=== PATIENT | female | born 1940 | race African-American/Black ===

== ENCOUNTER 2017-09-30 21:31 | Emergency (ER) | payer MEDICARE ==
[~2017-09-30] VITALS: Ht 154.9 cm; Wt 50.0 kg
[~2017-09-30 21:31] MED LIST: ASPI-867 PO; ATOR20TA65 PO; BUSP5TAB3 PO; CLOP75TA33 PO; DILT180C69 PO; FAMO20TA8 PO; FISH PO; METO100T16 PO; MIRT-91 PO; QUET50TA PO
[2017-09-30 22:48] LABS: CLARITY URINE CLEAR (CLEAR); COLOR URINE YELLOW (YELLOW); KETONES URINE NEGATIVE (NEGATIVE); LEUKOCYTE ESTERASE URINE NEGATIVE (NEGATIVE); NITRITE URINE NEGATIVE (NEGATIVE); OCCULT BLOOD URINE NEGATIVE (NEGATIVE); PROTEIN URINE 2+ (NEGATIVE); SPECIFIC GRAVITY URINE 1.024 (1.005-1.030); UROBILINOGEN URINE 0.2 E.U./dL (0.2-1.0)
[2017-09-30 23:06] LABS: BASOPHILS % 0.5 % (0.0-2.0); EOSINOPHILS % 0.7 % (0.0-5.0); HEMATOCRIT. 35.8 % (36.0-48.0); HEMOGLOBIN. 11.5 g/dL (12.0-16.0); MEAN CORPUSCULAR HEMOGLOBIN 27.1 pg (28.0-32.0); MEAN CORPUSCULAR VOLUME 84.6 fL (81.0-99.0); MEAN PLATELET VOLUME 8.9 fl (7.4-10.4); MONOCYTES % 9.4 % (2.0-8.0); NEUTROPHILS % 66.4 % (40.0-76.0); PLATELET 166 x1000/uL (130-400); RED BLOOD CELL COUNT 4.23 mill/uL (4.2-5.4); RED CELL DISTRIBUTION WIDTH 17.7 % (11.6-14.6)
[2017-09-30 23:07] LABS: CHLORIDE 109 mEq/L (98-107)
[2017-09-30 23:09] LABS: INR 1.3; PARTIAL THROMBOPLASTIN TIME 20.6 sec (23.4-31.0); PROTHROMBIN TIME 14.1 sec (9.4-11.6)
[2017-10-01 01:00] VITALS: BP 192/137
[2017-10-01] MEDS ORDERED: METOPROLOL TARTRATE 50MG TABLET PO ONE (01:15)
[2017-10-01] MEDS ORDERED: LOSARTAN POTASSIUM 25 MG TABLET PO ONE (01:15)
[2017-10-01] MEDS ORDERED: QUETIAPINE FUMARATE 50MG TABLET PO SCH (01:15)
== END 2017-10-01 01:00 | disposition home or self-care (01) ==
LOC: ER 21:31
DX: M54.2 Cervicalgia (principal); W10.9XXA Fall (on) (from) unspecified stairs and steps, initial encounter; Y93.89 Activity, other specified; Y92.89 Other specified places as the place of occurrence of the external cause; R07.89 Other chest pain; I48.91 Unspecified atrial fibrillation; I10 Essential (primary) hypertension; M48.02 Spinal stenosis, cervical region; R79.1 Abnormal coagulation profile; F03.90 Unspecified dementia, unspecified severity, without behavioral disturbance, psychotic disturbance, mood disturbance, and anxiety; R90.82 White matter disease, unspecified; I25.2 Old myocardial infarction; Z79.01 Long term (current) use of anticoagulants; Z79.82 Long term (current) use of aspirin; Z95.0 Presence of cardiac pacemaker
CPT/HCPCS: 36415; 70450; 71045; 72125; 72170; 80053; 81003; 83690; 85025; 85610; 85730; 86850; 86900; 99285

== ENCOUNTER 2017-10-17 23:02 | Observation (INO) | payer MEDICARE ==
[~2017-10-17] VITALS: Ht 154.9 cm; Wt 47.2 kg
[2017-10-17] MEDS ORDERED: ACETAMINOPHEN 325MG TABLET PO STA (23:22)
[2017-10-17] MEDS ORDERED: NITROGLYCERIN OINT 1GM/INCH UDPKT TD ONE (23:30)
[2017-10-17] MEDS ORDERED: ASPIRIN 81MG TABLET PO ONE (23:30)
[2017-10-17] MEDS ORDERED: LABETALOL HCL 20MG/4ML CARPUJECT IV ONE (23:30)
[2017-10-17] MEDS ORDERED: LABETALOL 5MG/ML SYR 20 MG/4 ML SYRINGE IV NR (23:32)
[2017-10-18] LABS: BASOPHILS % 0.3 % (0.0-2.0); EOSINOPHILS % 0.1 % (0.0-5.0); HEMATOCRIT. 42.5 % (36.0-48.0); HEMOGLOBIN. 14.1 g/dL (12.0-16.0); LYMPHOCYTES % 13.6 % (20.0-50.0); MEAN CORPUSCULAR HEMOGLOBIN 27.4 pg (28.0-32.0); MEAN CORPUSCULAR VOLUME 82.3 fL (81.0-99.0); MEAN PLATELET VOLUME 8.5 fl (7.4-10.4); MONOCYTES % 9.8 % (2.0-8.0); NEUTROPHILS % 76.2 % (40.0-76.0); PLATELET 252 x1000/uL (130-400); RED BLOOD CELL COUNT 5.16 mill/uL (4.2-5.4); RED CELL DISTRIBUTION WIDTH 16.8 % (11.6-14.6)
[2017-10-18 00:05] LABS: INR 1.3; PROTHROMBIN TIME 13.4 sec (9.4-11.6)
[2017-10-18 00:23] LABS: CHLORIDE 96 mEq/L (98-107)
[2017-10-18 00:31] LABS: ETHANOL BLOOD < 10 mg/dL
[2017-10-18] MEDS ORDERED: HYDRALAZINE 20MG/ML VIAL IV SCH (02:13)
[2017-10-18 03:45] LABS: CLARITY URINE CLEAR (CLEAR); COLOR URINE YELLOW (YELLOW); KETONES URINE NEGATIVE (NEGATIVE); LEUKOCYTE ESTERASE URINE NEGATIVE (NEGATIVE); NITRITE URINE NEGATIVE (NEGATIVE); OCCULT BLOOD URINE NEGATIVE (NEGATIVE); PROTEIN URINE 2+ (NEGATIVE); SPECIFIC GRAVITY URINE 1.017 (1.005-1.030); UROBILINOGEN URINE 0.2 E.U./dL (0.2-1.0)
[2017-10-18 03:58] LABS: *AMPHETAMINES SCREEN URINE NEGATIVE (NEGATIVE); *BARBITURATES SCREEN URINE NEGATIVE (NEGATIVE); CANNABINOID URINE SCREEN NEGATIVE (NEGATIVE)
[2017-10-18 03:59] LABS: *BENZODIAZEPINES SCREEN URINE NEGATIVE (NEGATIVE); *COCAINE SCREEN URINE NEGATIVE (NEGATIVE); METHADONE URINE SCREEN NEGATIVE (NEGATIVE); OPIATES URINE SCREEN NEGATIVE (NEGATIVE); PHENCYCLIDINE URINE SCREEN NEGATIVE (NEGATIVE)
[2017-10-18 09:00] VITALS: BP 115/82
[2017-10-18 09:30] VITALS: BP 115/82
[2017-10-18] MEDS ORDERED: WARF3TAB58 PO (09:57)
[2017-10-18] MEDS ORDERED: ASPI-1158 PO (09:57)
[2017-10-18] MEDS ORDERED: METO-385 PO (09:57)
[2017-10-18] MEDS ORDERED: MULT-1146 MT (09:57)
[2017-10-18] MEDS ORDERED: LOSA25TA12 PO (09:57)
[2017-10-18] MEDS ORDERED: WARF-67 PO (09:57)
[2017-10-18 12:00] VITALS: BP 134/96
[2017-10-18 16:34] VITALS: BP 124/89
[2017-10-18] MEDS ORDERED: IPRATROPIUM/ALBUTEROL 0.5-3(2.5)MG/3ML NEB HHN PRN (17:00)
[2017-10-18] MEDS ORDERED: ACETAMINOPHEN 650MG/20.3ML UDC PO PRN (17:00)
[2017-10-18] MEDS ORDERED: WARFARIN SODIUM 3MG TABLET PO NR (18:00)
[2017-10-18] MEDS: LOSARTAN POTASSIUM 25 MG TABLET PO SCH (18:18)
[2017-10-18] MEDS: FUROSEMIDE 20MG/2ML VIAL IVP SCH (18:20)
[2017-10-18 20:00] VITALS: BP 188/104
[2017-10-18] MEDS: CLONIDINE 0.1MG TABLET PO PRN (20:08)
[2017-10-18 20:37] LABS: HEMATOCRIT 37.7 % (36.0-48.0); HEMOGLOBIN 12.4 g/dL (12.0-16.0); MEAN CORPUSCULAR HEMOGLOBIN 26.8 pg (28.0-32.0); MEAN CORPUSCULAR VOLUME 81.3 fL (81.0-99.0); PLATELET 242 x1000/uL (130-400); RED BLOOD CELL COUNT 4.63 mill/uL (4.2-5.4); RED CELL DISTRIBUTION WIDTH 16.6 % (11.6-14.6)
[2017-10-18 20:39] LABS: CHLORIDE 98 mEq/L (98-107)
[2017-10-18] MEDS: ATORVASTATIN CALCIUM 20MG TABLET PO SCH (20:51)
[2017-10-19] MEDS ORDERED: LORAZEPAM 2MG/ML CPJ IV PRN (00:45)
[2017-10-19] MEDS ORDERED: DILTIAZEM HCL 5MG/ML 5ML VIAL IV SCH (00:49)
[2017-10-19 04:00] VITALS: BP 147/86
[2017-10-19 07:05] LABS: HEMATOCRIT 36.7 % (36.0-48.0); HEMOGLOBIN 12.1 g/dL (12.0-16.0); MEAN CORPUSCULAR HEMOGLOBIN 26.5 pg (28.0-32.0); MEAN CORPUSCULAR VOLUME 80.7 fL (81.0-99.0); PLATELET 227 x1000/uL (130-400); RED BLOOD CELL COUNT 4.55 mill/uL (4.2-5.4); RED CELL DISTRIBUTION WIDTH 16.7 % (11.6-14.6)
[2017-10-19 07:11] LABS: INR 1.4; PROTHROMBIN TIME 14.1 sec (9.4-11.6)
[2017-10-19 07:39] VITALS: BP 156/96
[2017-10-19 07:46] LABS: CHLORIDE 100 mEq/L (98-107)
[2017-10-19] MEDS: FUROSEMIDE 20MG/2ML VIAL IVP SCH (08:13)
[2017-10-19] MEDS: ASPIRIN 81MG EC TABLET PO SCH (08:13)
[2017-10-19] MEDS: CLOPIDOGREL 75MG TABLET PO SCH (08:13)
[2017-10-19] MEDS: LOSARTAN POTASSIUM 25 MG TABLET PO SCH (08:13)
[2017-10-19] MEDS: DILTIAZEM HCL 60MG TABLET PO SCH ×3 (08:16→20:46)
[2017-10-19] MEDS: FAMOTIDINE 20MG TABLET PO SCH (08:18)
[2017-10-19] MEDS ORDERED: QUETIAPINE FUMARATE 50MG TABLET PO SCH ×2 (09:00)
[2017-10-19 12:10] VITALS: BP 121/82
[2017-10-19 16:24] VITALS: BP 121/87
[2017-10-19] MEDS ORDERED: WARFARIN SODIUM 3MG TABLET PO NR (18:00)
[2017-10-19 20:00] VITALS: BP 113/73
[2017-10-19] MEDS: ATORVASTATIN CALCIUM 20MG TABLET PO SCH (20:46)
[2017-10-20] VITALS: BP 120/85
[2017-10-20 04:00] VITALS: BP 157/89
[2017-10-20] MEDS: DILTIAZEM HCL 60MG TABLET PO SCH ×3 (05:21→20:08)
[2017-10-20 06:42] LABS: HEMATOCRIT 37.4 % (36.0-48.0); HEMOGLOBIN 12.2 g/dL (12.0-16.0); MEAN CORPUSCULAR HEMOGLOBIN 26.3 pg (28.0-32.0); MEAN CORPUSCULAR VOLUME 80.8 fL (81.0-99.0); PLATELET 233 x1000/uL (130-400); RED BLOOD CELL COUNT 4.63 mill/uL (4.2-5.4); RED CELL DISTRIBUTION WIDTH 16.4 % (11.6-14.6)
[2017-10-20 06:49] LABS: INR 1.5; PROTHROMBIN TIME 16.2 sec (9.4-11.6)
[2017-10-20 07:31] LABS: CHLORIDE 103 mEq/L (98-107)
[2017-10-20 08:00] VITALS: BP 125/69
[2017-10-20] MEDS: FAMOTIDINE 20MG TABLET PO SCH (09:00)
[2017-10-20] MEDS: ASPIRIN 81MG EC TABLET PO SCH (09:00)
[2017-10-20] MEDS: LOSARTAN POTASSIUM 25 MG TABLET PO SCH (09:00)
[2017-10-20] MEDS: CLOPIDOGREL 75MG TABLET PO SCH (09:00)
[2017-10-20] MEDS: FUROSEMIDE 20MG/2ML VIAL IVP SCH (09:00)
[2017-10-20 12:00] VITALS: BP 124/74
[2017-10-20 16:00] VITALS: BP 160/100
[2017-10-20] MEDS: CLONIDINE 0.1MG TABLET PO PRN (20:09)
[2017-10-20 20:12] VITALS: BP 164/86
== END 2017-10-20 20:45 | disposition home or self-care (01) ==
LOC: ER 23:05 → 8WST 10-18 01:32 → INTOOBSV 10-18 01:32 → ENRESERV 10-18 07:17 → 8WST 10-18 19:59
PROVIDERS: ADMIT Internal Medicine; ATTEND Internal Medicine
DX: R51 Headache (principal); E78.5 Hyperlipidemia, unspecified; F03.90 Unspecified dementia, unspecified severity, without behavioral disturbance, psychotic disturbance, mood disturbance, and anxiety; I11.0 Hypertensive heart disease with heart failure; I48.91 Unspecified atrial fibrillation; I16.0 Hypertensive urgency; I50.32 Chronic diastolic (congestive) heart failure; Z79.01 Long term (current) use of anticoagulants; R79.1 Abnormal coagulation profile
CPT/HCPCS: 36415; 70450; 71045; 80048; 80053; 80305; 81003; 82962; 83036; 83690; 83735; 83880; 84484; 85025; 85027; 85379; 85610; 93005; 93306; 93970; 96374; 96375; 96376; 99285; C1893; G0378; G0482; J0360; J1940; J2060; J3490; A4315